=== PATIENT | female | born 1935 | race Caucasian/White ===

== ENCOUNTER 2021-01-21 17:48 | Emergency (ER) | payer MEDICARE, OTHER, SELFPAY ==
[2021-01-21 17:48] VITALS: BP 225/107; PULSE 72; RESP 16; TEMP 36.4; O2SAT 99; BMI 24.2
== END 2021-01-21 18:09 | disposition left against medical advice (07) ==
PROVIDERS: Emergency Provider Emergency Medicine
DX: Z53.21 Procedure and treatment not carried out due to patient leaving prior to being seen by health care provider (principal)
CPT/HCPCS: 99281